=== PATIENT | female | born 1965 | race Caucasian/White ===

== ENCOUNTER 2019-07-26 17:05 | Emergency (ER) | payer BC ==
--- NOTE | 2019-07-26 20:46 | ED ---
Palpitations / Dysrhythmia - HPI Summary HPI Summary: This patient is a 54 year old female presenting to [facility] with a chief complaint of palpitations since 3 days ago. She staets she reports feeling weak and SOB. She describes the palpitations as a fluttering. She states she currently feels like she is crashing from a caffeine high. She states she usually drinks 1-1.5 cups of coffee early in the morning and this is unusual for her. She states she has a Hx of panic attacks but states this did not feel like this. She states mild lightheadedness. She states she had bright red blood in her stool once instance one week ago, and she states there was no blood when she wiped. Pt denies any fever, chills, erythema of eyes, sore throat, CP, cough, abdominal pain, N/V, dysuria, hematuria, myalgia, edema, or rash. - History of Current Complaint Chief Complaint: EDDysrhythmPalp Time Seen by Provider: 07/26/19 20:26 Hx Obtained From: Patient Onset/Duration: Lasting Days Severity Initially: Moderate Severity Currently: Moderate Character: Fluttering Associated Signs & Symptoms: Lightheadedness - Allergy/Home Medications Allergies/Adverse Reactions: Allergies Allergy/AdvReac Type Severity Reaction Status Date / Time MS Penicillins [PCN] Allergy Rash Verified 07/26/19 20:45 MS Sulfa Drugs [Sulfa Drugs] Allergy yeast Verified 07/26/19 20:45 Home Medications: Home Medications NK [No Home Medications Reported] 04/06/16 [History Confirmed 07/26/19] PMH/Surg Hx/FS Hx/Imm Hx Endocrine/Hematology History: Denies: Hx Diabetes, Hx Thyroid Disease Cardiovascular History: Denies: Hx Hypertension Respiratory History: Denies: Hx Asthma, Hx Chronic Obstructive Pulmonary Disease (COPD) GI History: Denies: Hx Ulcer - Cancer History Hx Chemotherapy: No Hx Radiation Therapy: No - Surgical History Surgery Procedure, Year, and Place: d&c. vericose vein removal right leg Infectious Disease History: No Infectious Disease History: Denies: Hx Clostridium Difficile, Hx Hepatitis, Hx Human Immunodeficiency Virus (HIV), Hx of Known/Suspected MRSA, Hx Shingles, Hx Tuberculosis, Traveled Outside the [place] in Last 30 Days - Social History Alcohol Use: Occasionally Substance Use Type: Reports: None Smoking Status (MU): Never Smoked Tobacco Review of Systems Negative: Fever, Chills Negative: Erythema Negative: Sore Throat Positive: Palpitations. Negative: Chest Pain Positive: Shortness Of Breath. Negative: Cough Positive: Other - Blood in stool . Negative: Abdominal Pain, Vomiting, Nausea Negative: dysuria, hematuria Negative: Myalgia, Edema Negative: Rash Neurological/Mental Status: Other - Dizziness All Other Systems Reviewed And Are Negative: No Physical Exam - Summary Physical Exam Summary: Constitutional: Well-developed, Well-nourished, Alert. (-) Distressed Skin: Warm, Dry HENT: Normocephalic; Atraumatic Eyes: Conjunctiva normal Neck: Musculoskeletal ROM normal neck. (-) JVD, (-) Stridor, (-) Tracheal deviation Cardio: Rhythm regular, rate normal, Heart sounds normal; Intact distal pulses; The pedal pulses are 2+ and symmetric. Radial pulses are 2+ and symmetric. (-) Murmur Pulmonary/Chest wall: Effort normal. (-) Respiratory distress, (-) Wheezes, (-) Rales Abd: Soft, (-) tenderness, (-) Distension, (-) Guarding, (-) Rebound Musculoskeletal: (-) Edema Lymph: (-) Cervical adenopathy Neuro: Alert, Oriented x3 Psych: Mood and affect Normal Triage Information Reviewed: Yes Vital Signs On Initial Exam: Initial Vitals Temp Pulse Resp BP Pulse Ox 98.6 F 86 18 139/107 99 07/26/19 17:11 07/26/19 17:11 07/26/19 17:11 07/26/19 17:11 07/26/19 17:11 Vital Signs Reviewed: Yes Procedures - Sedation Patient Received Moderate/Deep Sedation with Procedure: No Diagnostics - Vital Signs Vital Signs Temp Pulse Resp BP Pulse Ox 07/26/19 19:17 98.6 F 77 18 126/98 07/26/19 18:20 128/72 07/26/19 17:11 98.6 F 86 18 139/107 99 - Laboratory Result Diagrams: 07/26/19 21:00 07/26/19 21:00 Lab Statement: Any lab studies that have been ordered have been reviewed, and results considered in the medical decision making process. - EKG 1924 Cardiac Rate: NL - 71 BPM EKG Rhythm: Sinus Rhythm Summary of EKG Findings: No STEMI. ED Physician has reviewed and interpreted this EKG. Re-Evaluation - Re-Evaluation First Eval Re-Evaluation Time: 22:20 Change: Unchanged - At the time of discharge, the patient stood up and stated that she felt like she was having palpitations again and that her heart was beating quickly. I immediately took her pulse which was between 80 and 90. We put her back on telemetry which revealed this rate with normal sinus rhythm. We continued to monitor for about 10 minutes, the patient wished to leave at this point, was always normal sinus rhythm. We did discuss an anxiolytic for tonight to help her get some sleep which was her own suggestion, I offered to go along with this plan, however she left before this could be done. Course/Dx - Course Course Of Treatment: This patient is a 54 year old female presenting to [facility] with a chief complaint of palpitations since 3 days ago. She staets she reports feeling weak and SOB. She describes the palpitations as a fluttering. She states she currently feels like she is crashing from a caffeine high. She states she usually drinks 1-1.5 cups of coffee early in the morning and this is unusual for her. She states she has a Hx of panic attacks but states this did not feel like this. She states mild lightheadedness. Telemetry reading per Dr. Vargas is NSR at 70 BPM. She maintained NSR for her entire visit. Plan for discharge was discussed with the patient and she understands and agrees with this plan. - Diagnoses Provider Diagnoses: Palpitations Discharge ED - Sign-Out/Discharge Documenting (check all that apply): Patient Departure - Discharge - Discharge Plan Condition: Stable Disposition: HOME Patient Education Materials: Heart Palpitations (ED) Referrals: Chi De La Fuente MD [Primary Care Provider] - 3 Days Additional Instructions: Return to ED with new or worsening symptoms. - Billing Disposition and Condition Condition: STABLE Disposition: Home - Attestation Statements Document Initiated by Scribe: Yes Documenting Scribe: Shane Wilcox Provider For Whom Scribe is Documenting (Include Credential): Jj Vargas MD Scribe Attestation: Shane Figueroa, scribed for Jj Vargas MD on 07/30/19 at 1104. Scribe Documentation Reviewed: Yes Provider Attestation: The documentation as recorded by the scribe, Shane Wilcox accurately reflects the service I personally performed and the decisions made by me, Jj Vargas MD Status of Scribe Document: Viewed
[2019-07-26 21:11] LABS: ABS Eosinophils 0.1 10^3/ul (0-0.6); ABS Lymphocytes 2.3 10^3/ul (1.0-4.8); ABS Monocytes 0.5 10^3/ul (0-0.8); ABS Neutrophils 2.9 10^3/ul (1.5-7.7); Eosinophil % 1.1 %; Hematocrit 39 % (35-47); Hemoglobin 12.7 g/dL (12.0-16.0); Lymphocyte % 40.2 %; Mean Corpuscular HGB Conc 33 g/dL (31-36); Mean Corpuscular Hemoglobin 24 pg (27-31); Mean Corpuscular Volume 72 fL (80-97); Nucleated Red Blood Cells % 0.2; Platelet Count 271 10^3/uL (150-450); Red Cell Distribution Width 18 % (10-15); White Blood Count 5.8 10^3/uL (3.5-10.8)
[2019-07-26 21:17] LABS: INR 0.99 (0.82-1.09)
[2019-07-26 21:29] LABS: Albumin 4.5 g/dL (3.2-5.2); Albumin/Globulin Ratio 1.8 (1-3); BUN/Creatinine Ratio 28.6 (8-20); Calcium 9.9 mg/dL (8.6-10.3); EGFR African American 105.1 (>60); EGFR Non-African American 86.9 (>60); Globulin 2.5 g/dL (2-4); Potassium 4.3 mmol/L (3.5-5.0); Total Bilirubin 0.4 mg/dL (0.2-1.0)
[2019-07-26 21:30] LABS: Troponin I 0.01 ng/mL (<0.03)
[2019-07-26 22:00] VITALS: BP 143/99
[2019-07-26 22:04] LABS: TSH (Thyroid Stimulating Horm) 2.24 mcIU/mL (0.34-5.60)
[2019-07-26 22:06] LABS: Free T4 0.91 ng/dL (0.61-1.12)
== END 2019-07-26 22:07 | disposition home or self-care (01) ==
LOC: ED 17:05
DX: R00.2 Palpitations (principal); R06.02 Shortness of breath; R53.1 Weakness; R42 Dizziness and giddiness; Z88.0 Allergy status to penicillin; Z88.2 Allergy status to sulfonamides
CPT/HCPCS: 36415; 80053; 84439; 84443; 84484; 85025; 85379; 85610; 93005; 99283